=== PATIENT | male | born 1970 | race Caucasian/White ===

== ENCOUNTER 2024-08-24 10:00 | Outpatient (CLI) | payer BC, SELFPAY ==
--- NOTE | ~2024-08-24 | US_ITS ---
EXAMINATION: US thyroid DATE: 08/24/2024 11:11 INDICATION: Thyroid nodule. TECHNIQUE: Multiple ultrasound images of the thyroid were obtained. COMPARISON: None. FINDINGS: The right thyroid lobe measures 2.8 x 2.2 x 4.8 cm. The left thyroid lobe measures 3.7 x 2.2 x 1.6 c m. In the right thyroid lobe, there is a 10 mm solid, hypoechoic, solid nodule with smooth margin wi thout echogenic foci (TI-RADS TR4). In the left thyroid lobe, there is a 4 mm nodule. IMPRESSION: 1. Small thyroid nodules. Thyroid ultrasound is recommended in one year. Reviewed, dictated and finalized at location A. DING PRESSURE WASHER
--- NOTE | ~2024-08-24 | US_ITS ---
EXAMINATION: US arterial ankle brachial ind DATE: 08/24/2024 11:11 INDICATION: Essential hypertension. Prediabetes. TECHNIQUE: Segmental pressures and plethysmographic and Doppler waveforms of the brachial and lower e xtremity arteries were obtained. COMPARISON: None. FINDINGS: Right and left brachial artery pressures of 116 mm Hg and 117 mm Hg, respectively, are concordant (no rmal difference <= 30 mmHg). The right ankle-brachial index (EDISON) is 1.21 (normal >= 0.9-1.0). The right great toe-brachial index (TBI) is 0.67 (normal >= 0.65). Arterial Doppler waveforms demonstrate normal brisk systolic upstroke s at both right posterior tibial and dorsalis pedis arteries. The left EDISON is 1.04. The left TBI is 0.47. Arterial Doppler waveforms demonstrate normal brisk systo lic upstrokes at both left posterior tibial and dorsalis pedis arteries. IMPRESSION: 1. No significant arterial occlusive disease to the right lower limb. 2. 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 Reviewed, dictated and finalized at location B. SURE CONTROL SUPERVISOR IMPRESSION: 1. No significant arterial occlusive disease to the right lower limb. 2. 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
== END 2024-08-24 10:01 | disposition home or self-care (01) ==
PROVIDERS: PCP Family Medicine; Visit Provider Family Medicine
DX: E04.2 Nontoxic multinodular goiter (principal); I77.1 Stricture of artery; I10 Essential (primary) hypertension; R73.03 Prediabetes; R20.2 Paresthesia of skin; M54.9 Dorsalgia, unspecified; G47.30 Sleep apnea, unspecified; E78.5 Hyperlipidemia, unspecified; E66.01 Morbid (severe) obesity due to excess calories; D72.10 Eosinophilia, unspecified; J30.9 Allergic rhinitis, unspecified; I87.2 Venous insufficiency (chronic) (peripheral)
CPT/HCPCS: 76536; 93922

== ENCOUNTER 2025-04-07 09:13 | Outpatient (CLI) | payer BC, SELFPAY ==
--- OUTSIDE RECORDS SUMMARY | 2025-04-07 09:23 | XMS_ITS | Clinical Summary ---
Author Organization [facility] Address [address] [place] [address] Care Team Providers Care Researcher Name Role Phone Neo Alva MD Primary Care Provider [phone] Neo Alva MD Unavailable [phone] Dell Stahl MD Unavailable [phone] Allergies Active Allergy Reactions Criticality Noted Date Comments Codeine Hives Medium 04/16/2012 Measles And Rubella Live Virus Vaccine Unknown 06/10/2019 Niacin Rash Medium 10/16/2016 Penicillins Tramadol Rash Medium 05/18/2019 Medications omeprazole 20 mg tablet,delayed release (DR/EC) 20 mg. 0 0 6 Active Additional Information Patient taking differently:20 mgoral Daily, Reported on 06/10/2019 amLODIPine (NORVASC) 5 mg tablet take 1 tablet by oral route every day 0 0 6 Active meloxicam (MOBIC) 15 mg tablet take 1 tablet by oral route every day 0 0 6 Active aspirin 325 mg tablet take 1 tablet by oral route every day 0 0 6 Active hydroCHLOROthia zide (HYDRODIURIL) 12.5 mg tablet Take 12.5 mg by mouth daily Active DOXYCYCLINE HYCLATE 100 mg capsule 9 Active acetaminophen (TYLENOL) 500 mg tablet Take 1,000 mg by mouth 2 (two) times a day Active metoprolol XL (TOPROL-XL) 100 mg 24 hr tablet 0 Active Active Problems Problem Noted Date Diagnosed Date Morbid obesity 02/11/2020 Acute endocarditis 06/10/2019 Aortic root enlargement 06/10/2019 Nonrheumatic aortic (valve) insufficiency 2018 Sepsis due to methicillin re sistant Staphylococcus aureus (MRSA) 05/23/2019 Obesity 12/01/2018 Hypertension, essential 12/01/2018 Surgical History Surgery Date Site/Laterality Comments TOTAL HIP ARTHROPLASTY 01/05/2019 - 02/03/2019 Right TOTAL HIP ARTHROPLASTY L Medical History Medical History Date Comments Hx Other Medical SVT; A-fib; Com ments: APO 02/03/2016 - Hx Other Medical GERD; Comments: APO 02/03/2016 - Hyperlipidemia Hyperlipidemia; Comments: APO 02/03/2016 - Hx Other Medical Back pain; Comm ents: APO 02/03/2016 - Hx Other Medical Neuropathy- fee t; Comments: APO 02/03/2016 - Hypertension Hypertension Family History Medical History Relation Name Comments Heart failure Father Hypertension Father Heart disease Other 1 Family history of Heart problems; Lung disease Other 2 Family history of Lung problems; Cancer Other 3 Family history of Cancer, unknown; Hypertension Other 4 Family history of Hypertension; Stroke Other 5 Family history of Stroke; Relation Name Status Comments Father Other 1 Other 2 Other 3 Other 4 Other 5 Social History Tobacco Use Types Packs/Day Years Used Date Smoking Tobacco: Never Smokeless Tobacco: Never Alcohol Use Standard Drinks/Week Comments Not Currently 0 (1 standard drink = 0.6 oz pur e alcohol) Sex and Gender Information Value Date Recorded Sex Assigned at Not on file Legal Sex Male 4:03 AM [employer]A DISP[employer]ER Gender Identity Not on file Sexual Orientation Not on file Obstetrics History Last Filed Vital Signs Vital Sign Reading Time Taken Comments Blood Pressure 132/74 02/11/2020 1:09 PM CDT Pulse 68 02/11/2020 1:09 PM CDT Temperature 36.4 C (97.5 F) 11/05/2019 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 difficile 04/30/2019 04/29/2019 Insurance [facility] Care Teams Researcher Relationship Specialty Start Date End Date Neo Alva MD [address] [place] [address] PCP - General 04/30/19 Neo Alva MD [address] [place] [address] [place] [id number] Family Practice 04/30/19 Dell Stahl MD [address] [facility] [place] [address] [employer] Cataloguer Cardiology 05/15/19
--- OUTSIDE RECORDS SUMMARY | 2025-04-07 09:23 | XMS_ITS | Patient Health Record ---
Author Organization [facility] Address [address] [place] [address] Care Team Providers Care Electrician Supervisor Substation Name Role Phone Dr. Niharika Castillo Primary Care Provider [phone] Ginna Alexander Unavailable [phone] Migration, Provider Unavailable Unavailable Allergies Allergen (clinical drug ingredient) Drug/Non Drug Allergy documented on EMR Reaction Allergy Type Onset Date Status Measles, Mumps & Rubella Vac Unknown Drug Allergy 11/01/2021 Active codeine Codeine Unknown Drug Allergy 11/01/2021 Active Penicillin Unknown Drug Allergy 11/01/2021 Activ e tramadol traMADol hives Drug Allergy 11/01/2021 Active Results Component Value Reference Range Flag Notes CBC w/ Diff Reviewed date:05/20/2024 12:00:00 AM Interpretation: Performing Lab: Notes/Report: Baso Absolute 0.1 x10*3/mcL Basophil Auto 0.7 % Eos Absolute 0.6 x10*3/mcL Eosinophil Auto 7.5 % Hct 46.5 % Hgb 15.3 g/dL Lymph Absolute 2.9 x10*3/mcL Lymph Auto 37.9 % MCH 29.0 pg MCHC 33.0 g/dL MCV 87.9 fL [place] Absolute 0.7 x10*3/mcL [place] Auto 9.3 % MPV 9.3 fL Neutro Absolute 3.4 x10*3/mcL Neutro Auto 44.6 % Platelets 194 K/mcL RBC 5.29 x10*6/mcL RDW 13.8 % WBC 7.7 K/mcL Comprehensive Metabolic Pane l Reviewed date:05/20/2024 12:00:00 AM Interpretation: Performing Lab: Notes/Report: Albumin Lvl 4.0 g/dL Albumin/Globulin Ratio 1.5 Alk Phos 52 unit/L ALT 25 unit/L ANION GAP 8.1 mmol/L AST 17 unit/L Bilirubin Total 0.6 mg/dL BUN 21 mg/dL Calcium Lvl 9.5 mg/dL Chloride Lvl 106 mmol/L CO2 27 mmol/L Creatinine Lvl 1.33 mg/dL eGFR CKD-EPI 63 mL/min/1.73 m2 Glucose Lvl 107 mg/dL Potassium Lvl 4.1 mmol/L Protein Total 6.6 g/dL Sodium Lvl 141 mmol/L Hemoglobin A1c {Glycosylated } Reviewed date:05/20/2024 12:00:00 AM Interpretation: Performing Lab: Notes/Report: eAvg Glucose 126 mg/dL Hemoglobin A1c 6.0 % Lipid Panel {Chol, Trig, HDL , LDL} Reviewed date:05/20/2024 12:00:00 AM Interpretation: Performing Lab: Notes/Report: Chol/HDL 4 Cholesterol Total 129 mg/dL Coronary Risk 27 % HDL 35 mg/dL LDL 71 mg/dL NON HDL CHOLESTEROL 94 mg/dL Triglycerides 112 mg/dL PSA Annual Screening Reviewed date:05/20/2024 12:00:00 AM Interpretation: Performing Lab: Notes/Report: PSA Total 0.25 ng/mL T4 Free Reviewed date:05/20/2024 12:00:00 AM Interpretation: Performing Lab: Notes/Report: T4 Free 1.11 ng/dL Thyroid Stimulating Hormone Reviewed date:05/20/2024 12:00:00 AM Interpretation: Performing Lab: Notes/Report: TSH 1.52 mcIU/mL Ultrasound : Artery Doppler Low Ext Left Reviewed date:10/19/2024 10:03:57 AM Interpretation:Negative Performing Lab: Notes/Report: Negative Hemoglobin A1c {Glycosylated } Reviewed date:02/14/2025 08:42:21 PM Interpretation: Performing Lab: Notes/Report: Test Performed by: [place] [address] Speaking Unit Assembler: Jarrett Roland DO Hemoglobin A1c 6.0 <=6.4 % Hemoglobin A1C < 5.7% = Normal 5.7-6.4% = Increased risk for future diabetes >=6.5% = Diabetes eAvg Glucose 126 <=117 mg/dL H eAG Reference Range <117 mg/dL = Normal 117-137 mg/dL = Increased Risk For Future Diabetes >137 mg/dL = Diabetes Vitamin D 25 Hydroxy Reviewed date:02/14/2025 08:42:22 PM Interpretation: Performing Lab: Notes/Report: Test Performed by: [place] [id number] Speaking Unit Assembler: Jarrett Roland DO Vitamin D 25 OH 24 30-100 ng/mL L Vitamin D25 Interpretation: Deficient: <= 20 ng/mL Insufficient: 21-29 ng/mL Sufficient: 30-100 ng/mL Upper Safety Limit: >100 ng/mL T4 Free Reviewed date:02/14/2025 08:42:22 PM Interpretation: Performing Lab: Notes/Report: Test Performed by: [place] [id number] Speaking Unit Assembler: Jarrett Roland DO T4 Free 1.06 0.60-1.70 ng/dL CBC w Auto Diff Reviewed date:02/14/2025 08:42:22 PM Interpretation: Performing Lab: Notes/Report: Test Performed by: [place] [address] Speaking Unit Assembler: Jarrett Roland DO WBC 5.6 4.0-11.7 K/mcL RBC 5.26 4.28-5.56 x10*6/mcL Hgb 15.5 13.0-17.0 g/dL Hct 44.7 38.1-48.9 % MCV 85.0 83.4-98.1 fL MCH 29.4 27.0-34.2 pg MCHC 34.6 31.8-35.3 g/dL RDW 14.5 12.0-16.4 % Platelets 190 149-393 K/mcL MPV 8.4 7.0-11.0 fL Neutro Auto 42.0 45.3-79.0 % L Lymph Auto 36.2 11.8-45.9 % [place] Auto 12.1 4.4-12.0 % H Eosinophil Auto 8.5 0.0-6.3 % H Basophil Auto 1.2 0.2-1.6 % Neutro Absolute 2.3 2.4-8.4 x10*3/mcL L Lymph Absolute 2.0 0.8-3.7 x10*3/mcL [place] Absolute 0.7 0.3-1.1 x10*3/mcL Eos Absolute 0.5 0.0-0.5 x10*3/mcL Baso Absolute 0.1 0.0-0.1 x10*3/mcL Comprehensive Metabolic Pane l Reviewed date:02/14/2025 08:42:22 PM Interpretation: Performing Lab: Notes/Report: Test Performed by: [place] [address] Speaking Unit Assembler: Jarrett Roland DO Glucose Lvl 98 74-109 mg/dL ADA risk stratification for diabetes <100 mg/dL = Normal 100-125 mg/dL = Increased risk for future diabetes >=126 mg/dL = Diabetes, if on more than one testing occasion BUN 23 7-25 mg/dL Creatinine Lvl 1.14 0.70-1.30 mg/dL eGFR CKD-EPI 75 >=90 mL/min/1.73 m2 L The CKD-EPI equation is validated in individuals 18 years of age and older. It is less accurate in patients with extremes of muscle mass, restriction of dietary protein, ingestion of creatine, extra-renal metabolism of creatinine, or treatment with medications that affect renal tubular creatinine secretion. GFR Categories in Chronic Kidney Disease (CKD) GFR GFR (mL/min/1.73 Category: square meters): Interpretation: G1 90 or greater Normal or high* G2 60-89 Mild decrease* G3a 45-59 Mild to moderate decrease G3b 30-44 Moderate to severe decrease G4 15-29 Severe decrease G5 14 or less Kidney failure *In the absence of evidence of kidney damage, neither GFR category G1 nor G2 fulfill the criteria for CKD (Kidney Int Suppl 2013;3:1-150) Calcium Lvl 9.1 8.6-10.3 mg/dL Sodium Lvl 139 136-145 mmol/L Potassium Lvl 4.1 3.5-5.1 mmol/L Chloride Lvl 105 98-107 mmol/L CO2 27 21-31 mmol/L Anion Gap 6.9 <=16.0 mmol/L Alk Phos 47 34-104 unit/L Bilirubin Total 0.6 0.3-1.0 mg/dL Albumin Lvl 3.9 3.5-5.2 g/dL Protein Total 6.6 6.4-8.9 g/dL Albumin/Globulin Ratio 1.4 1.1-2.5 ALT 20 7-52 unit/L AST 15 13-39 unit/L Lipid Panel {Chol, Trig, HDL , LDL} Reviewed date:02/14/2025 08:42:22 PM Interpretation: Performing Lab: Notes/Report: Test Performed by: [address] [id number] Speaking Unit Assembler: Jarrett Roland DO Cholesterol Total 143 <=199 mg/dL Triglycerides 116 0-149 mg/dL Triglyceride Reference Ranges: <150 mg/dL Normal 150 - 199 mg/dL Borderline High 200 - 499 mg/dL High >=500 mg/dL Very High LDL 80 <=100 mg/dL LDL Optimal: <100 Near or above optimal: 100-129 Borderline high: 130-159 High: 160-189 Very high: >=190 Coronary heart disease risk factors should be considered when determining LDL goals. Please refer to ATPIII guidelines for further information. If LDL is not calculated, please call the lab to add on the direct LDL methodology, if desired. HDL 39 23-92 mg/dL Non HDL Cholesterol 103 <=130 mg/dL Chol/HDL 4 0-5 Vitamin B12 Reviewed date:02/14/2025 08:42:22 PM Interpretation: Performing Lab: Notes/Report: Test Performed by: [address] [address] Speaking Unit Assembler: Jarrett Roland DO Vitamin B12 Lvl 382 180-914 pg/mL Vitamin B12 Interpretation: Normal Range: 180-914 pg/mL Indeterminate: 140-180 pg/mL Deficient: <140 pg/mL Reason For Referral Reason Screening colonoscop y-5 year surveillance- Please refer to [place] [facility] Diagnosis 1 Colon cancer screeni mary (Z12.11) Referral Organization [facility] Referring Provider First Name Ginna Referring Provider Last Name Catherine Referring Provider Speciality Nurse Prac titioner Referred Provider Specialty Gastroentero logy General Notes [place] Reina 0 02/15/2025 02:04:45 PM CDT >Referral faxed to Dr. De Leon [phone] Referral Priority Routine Medications Medication SIG (Take, Route, Frequency, Duration) Notes Start Date End Date Status Metoprolol Succinate ER 100 MG Tablet Extended Release 24 Hour 1 tablet Orally twice a day; Duration: 90 days Active Mupirocin 2 % Ointment a small amount Ex ternal two times a day; Duration: 0 10/30/2021 Active Aspirin 325 MG Tablet 1 Oral every day; Duration: 0 10/30/2021 Active Lisinopril-hydroCHLOROthiaz lisa 20-25 MG Tablet 1 tablet Orally Once a day; Duration: 90 days Active Rosuvastatin Calcium 10 MG Tablet 1 tablet Orally Once a day; Duration: 90 days at bedtime Active Immunizations Vaccine Route Administration Date Status Comme nts Zoster Unknown 08/13/2022 Administered ,sourcename : Pharmacy Source VFC Code: : Zoster IM Intramuscular 11/05/2023 Administered ,sourc ename : Pharmacy ,immstatus : Complete Td (adult), adsorbed Unknown 06/08/2003 Administered Source VFC Code: : Moderna Covid-19 Vaccine 1st dose IM Intramuscular 01/18/2021 Administered Source VFC Code: : Moderna Covid-19 Vaccine 1st dose IM Intramuscular 02/15/2021 Administered Source VFC Code: : Influenza, quadrivalent (IIV4), split virus, 6-35 months dosage IM Intramuscular 08/16/2020 Administered Source VFC Code: : Influenza, quadrivalent (IIV4), split virus, 6-35 months dosage IM Intramuscular 08/13/2022 Administered Source VFC Code: : Influenza 6mo+ Unknown 11/07/2024 Administered [facility] DTaP Unknown 12/10/2011 Administered Source VFC Code: : Social History Social History Household: Social Info Question Answer Notes Household Marital status: Additional Details Category Social Info Options Details Miscellaneous: 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 [employer] Problems Problem Type SNOMED Code ICD Code Onset Dates Problem Status W/U Status Risk Notes Problem Morbid obesity (disorder) (320355615) Morbid (severe) obesity due to excess calories (E66.01) 05/20/20 24 Active confirmed Problem Sleep apnea (22554073) Sleep apnea, unspecified (G47.30) 10/30/19 22 Active confirmed Problem Peripheral venous insufficiency (88518827) Venous insufficiency (chronic) (peripheral) (I87.2) 05/20/20 24 Active confirmed Problem Allergic rhinitis (64781658) Allergic rhinitis, unspecified (J30.9) 05/20/20 24 Active confirmed Problem Screening for malignant neoplasm of prostate (437388031) Encounter for screening for malignant neoplasm of prostate (Z12.5) 10/30/19 Active confirmed Problem Prediabetes (876262443) Prediabetes (R73.03) 04/18/20 Active confirmed Problem Body mass index 40+ - severely obese (179560823) Body mass index (BMI) 40.0-44.9, adult (Z68.41) 04/18/20 Active confirmed Problem Eosinophil count above reference range (finding) (183587821) Eosinophilia, unspecified (D72.10) 05/20/20 Active confirmed Problem Adult health examination (081814414) Encounter for general adult medical examination without abnormal findings (Z00.00) 10/30/19 Active confirmed Problem Hyperglycemia (28305014) Hyperglycemia, unspecified (R73.9) 01/05/20 Active confirmed Problem Paresthesia (finding) (35302729) Paresthesia of skin (R20.2) 05/20/20 Active confirmed Problem Backache (136333814) Dorsalgia, unspecified (M54.9) 05/20/20 Active confirmed Problem Essential hypertension (81688575) Essential (primary) hypertension (I10) 10/30/19 Active confirmed Problem Hyperlipidemia (15629950) Hyperlipidemia, unspecified (E78.5) 01/05/20 Active confirmed Problem Obesity (692601666) Obesity, unspecified (E66.9) 10/30/19 Active confirmed Problem Non-toxic single thyroid nodule (824879636) Nontoxic single thyroid nodule (E04.1) 04/18/20 Active confirmed Problem Thyroid nodule (872839265) Thyroid nodule (E04.1) Active confirmed Problem Sciatica (66472777) Lumbago with sciatica, unspecified side (M54.40) Active confirmed Problem Chronic pain (38062473) Other chronic pain (G89.29) Active confirmed Vital Signs Heart Rate 72 /min 02/15/2025 Temperature 96.4 degrees Fahrenheit 02/15/2025 Respiratory Rate 22 /min 02/15/2025 Height-cm 193.04 cm 02/15/2025 Blood pressure diastolic 74 mm Hg 02/15/2025 Oximetry 96 % 02/15/2025 Weight-kg 170.19 kg 02/15/2025 Height 76.00 in 02/15/2025 Blood pressure systolic 116 mm Hg 02/15/2025 Weight 375.2 lbs 02/15/2025 BMI 45.67 kg/m2 02/15/2025 Encounters Encounter Location Date Provider Diagnosis [address] [address] 05/19/2024 Provider Migration Essential (primary) hypertension I10 ; Encounter for screening for malignant neoplasm of prostate Z12.5 ; Hyperlipidemia, unspecified E78.5 ; Hyperglycemia, unspecified R73.9 ; Encounter for general adult medical examination without abnormal findings Z00.00 and Nontoxic single thyroid nodule E04.[address] [address] 05/20/2024 Dr. Niharika Castillo Venous insufficiency (chronic) (peripheral) I87.2 ; Essential (primary) hypertension I10 ; Encounter for removal of sutures Z48.02 ; Local infection of the skin and subcutaneous tissue, unspecified L08.9 ; Encounter for screening for malignant neoplasm of prostate Z12.5 ; Encounter for immunization Z23 ; Eosinophilia, unspecified D72.10 ; Encounter for general adult medical examination without abnormal findings Z00.00 ; Dorsalgia, unspecified M54.9 ; Sleep apnea, unspecified G47.30 ; Morbid (severe) obesity due to excess calories E66.01 ; Dermatitis, unspecified L30.9 ; Neoplasm of uncertain behavior of skin D48.5 ; Allergic rhinitis, unspecified J30.9 ; Paresthesia of skin R20.2 ; Hyperglycemia, unspecified R73.9 ; Hyperlipidemia, unspecified E78.5 ; Nontoxic single thyroid nodule E04.1 ; Prediabetes R73.03 and COVID-[address] [address] 09/01/2024 Provider Migration Nontoxic single thyroid nodule E04.[address] [address] 09/09/2024 Dr. Niharika Castillo [address] [address] 02/15/2025 Ginna Alexander Essential (primary) hypertension I10 ; Wellness examination Z00.00 ; Prediabetes R73.03 ; Hyperlipidemia, unspecified E78.5 ; Obesity, unspecified E66.9 ; Sleep apnea, unspecified G47.30 ; Peripheral polyneuropathy G62.9 ; Vitamin D deficiency E55.9 ; B12 deficiency E53.8 ; Colon cancer screening Z12.11 ; Other chronic pain G89.29 and Lumbago with sciatica, unspecified side M54.[address] [address] 09/05/2024 Provider Migration [address] [address] 09/06/2024 Provider Migration [address] [address] 09/22/2024 Dr. Niharika Castillo [address] [address] 09/22/2024 Dr. Niharika Castillo Thyroid nodule E04.[address] [address] 02/01/2025 Dr. Niharika Castillo [address] [address] 02/12/2025 Ginna Alexander Encounter for [facility] adult medical examination without abnormal findings Z00.00 ; Essential (primary) hypertension I10 ; Thyroid nodule E04.1 ; Hyperlipidemia, unspecified E78.5 and Prediabetes R73.03 Assessments Encounter Date Diagnosis (ICD Code) Assessment Notes Treatment Notes Treatment Clinical Notes Section Notes 09/22/2024 Thyroid nodule (ICD-10 - E04.1) 09/01/2024 Nontoxic single thyroid nodule (ICD-10 - E04.1) 05/20/2024 Neoplasm of uncertain behavior of skin (ICD-10 - D48.5) 05/20/2024 Nontoxic single thyroid nodule (ICD-10 - E04.1) 05/20/2024 Morbid (severe) obesity due to excess calories (ICD-10 - E66.01) 05/20/2024 Hyperlipidemia, unspecified (ICD-10 - E78.5) 05/20/2024 Sleep apnea, unspecified (ICD-10 - G47.30) 05/20/2024 Essential (primary) hypertension (ICD-10 - I10) 05/20/2024 Venous insufficiency (chronic) (peripheral) (ICD-10 - I87.2) 05/20/2024 Allergic rhinitis, unspecified (ICD-10 - J30.9) 05/20/2024 Local infection of the skin and subcutaneous tissue, unspecified (ICD-10 - L08.9) 05/20/2024 Dermatitis, unspecified (ICD-10 - L30.9) 05/20/2024 Dorsalgia, unspecified (ICD-10 - M54.9) 05/20/2024 Paresthesia of skin (ICD-10 - R20.2) 05/20/2024 Hyperglycemia, unspecified (ICD-10 - R73.9) 05/20/2024 Encounter for general adult medical examination without abnormal findings (ICD-10 - Z00.00) 05/20/2024 Encounter for screening for malignant neoplasm of prostate (ICD-10 - Z12.5) 05/20/2024 Encounter for immunization (ICD-10 - Z23) 05/20/2024 Encounter for removal of sutures (ICD-10 - Z48.02) 05/20/2024 Prediabetes (ICD-10 - R73.03) 05/20/2024 COVID-19 (ICD-10 - U07.1) 05/20/2024 Eosinophilia, unspecified (ICD-10 - D72.10) 05/19/2024 Nontoxic single thyroid nodule (ICD-10 - E04.1) 05/19/2024 Hyperlipidemia, unspecified (ICD-10 - E78.5) 05/19/2024 Essential (primary) hypertension (ICD-10 - I10) 05/19/2024 Hyperglycemia, unspecified (ICD-10 - R73.9) 05/19/2024 Encounter for general adult medical examination without abnormal findings (ICD-10 - Z00.00) 05/19/2024 Encounter for screening for malignant neoplasm of prostate (ICD-10 - Z12.5) 02/15/2025 Essential (primary) hypertension (ICD-10 - I10) -BP is controlled w/ metoprolol and lisinopril/HCTZ 02/15/2025 Wellness examination (ICD-10 - Z00.00) Routine wellness exam. Reviewed labs. Due for TDAP but kindly declined. Due for colon cancer screening in May 2025. PSA was last done 05/2024. 02/12/2025 Encounter for general adult medical examination without abnormal findings (ICD-10 - Z00.00) 02/12/2025 Essential (primary) hypertension (ICD-10 - I10) 02/15/2025 Prediabetes (ICD-10 - R73.03) -Last A1C was 6.0 and A1C is again 6. Remains on metformin. 02/15/2025 Hyperlipidemia, unspecified (ICD-10 - E78.5) -Tolerating statin and lipid panel was great. No changes needed with statin 02/12/2025 Thyroid nodule (ICD-10 - E04.1) 02/12/2025 Hyperlipidemia, unspecified (ICD-10 - E78.5) 02/15/2025 Obesity, unspecified (ICD-10 - E66.9) -Has gained weight back. Explored working on diet changes 02/15/2025 Sleep apnea, unspecified (ICD-10 - G47.30) -Wears mouth piece to manage SARAN 02/12/2025 Prediabetes (ICD-10 - R73.03) 02/15/2025 Peripheral polyneuropathy (ICD-10 - G62.9) -Bilateral feet numbness. Patient had aterial studies which were negative. Will get a nerve conduction study with EMG as next step 02/15/2025 Vitamin D deficiency (ICD-10 - E55.9) -Vit D is low at 24, will have him start Vit D 5,000 IU daily 02/15/2025 B12 deficiency (ICD-10 - E53.8) -B12 is 382. Will have him start B12 1,000mcg daily 02/15/2025 Colon cancer screening (ICD-10 - Z12.11) -Will refer for colon cancer screening at [facility]. Will be due in May 2025. 02/15/2025 Other chronic pain (ICD-10 - G89.29) 02/15/2025 Lumbago with sciatica, unspecified side (ICD-10 - M54.40) - Pain in lower back and buttocks after walking no more than 50 ft. -Offered PT referral, but he declined -Weightloss would be very beneficial. -If NVC/EMG shows a central concern will get a MRI fo back. - Recommendation to strengthen core and gluteal muscles through exercises, possibly using online resources. Plan Of Treatment Pending Test Test Name Order Date EMG/NCV ARMS 02/15/2025 Ultrasound : Thyroid Sonography B-Scan 1 11/23/2023 Next Appt Details Provider Name:Dr. Niharika Izquierdo michael, 08/16/2025 11:00:00 AM, [address] [facility], [place], [address], [phone] Insurance Providers Payer Name Payer Address Payer Phone Subscriber Number Group Number Insured Name Patient Relationship to Insured Coverage Start Date Coverage End Date [employer]BS[place] [address] [place] [address] [id number] Katarina Walter Spouse - patient is the spouse of the insured Medical (General) History Medical History History ICD Code Thyroid nodule E04.1 Body mass index (BMI) 40.0-44.9, adult Z 68.41 Eosinophilia, unspecified D72.10 Prediabetes R73.03 Encounter for screening for malignant ne oplasm of prostate Z12.5 Encounter for general adult medical exam ination without abnormal findings Z00.00 Hyperglycemia, unspecified R73.9 Paresthesia of skin R20.2 Dorsalgia, unspecified M54.9 Allergic rhinitis, unspecified J30.9 Venous insufficiency (chronic) (peripher al) I87.2 Essential (primary) hypertension I10 Sleep apnea, unspecified G47.30 Hyperlipidemia, unspecified E78.5 Obesity, unspecified E66.9 Morbid (severe) obesity due to excess ca lories E66.01 Nontoxic single thyroid nodule E04.1 Surgical History Surgery Date(Month/Year) Arthroplasty, acetabular and proximal femoral prosthetic replacement (total hip arthroplasty), with ,notes : BIlateral hip replacement 05/03/2020
--- OUTSIDE RECORDS SUMMARY | 2025-04-07 09:23 | XMS_ITS | Referral Summary ---
Author Organization [facility] Address [address] [place] [address] Care Team Providers Care Electrification Adviser Name Role Phone Neo Alva MD Primary Care Provider Neo Alva MD Unavailable [phone] Dell Stahl MD Unavailable [phone] Allergies Active Allergy Reactions Criticality Noted Date [...] (MRSA) 05/23/2019 Obesity 12/01/2018 Hypertension, essential 12/01/2018 Social History Tobacco Use Types Packs/Day Years Used Date Smoking Tobacco: Never Smokeless Tobacco: Never Alcohol Use Standard Drinks/Week Comments Not Currently 0 (1 standard drink = 0.6 oz pur e alcohol) Sex and Gender Information Value Date Recorded Sex Assigned at Not on file Legal Sex Male 4:03 AM SENIOR 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 Gender Identity Not on file Sexual Orientation Not on file Last Filed Vital Signs Vital Sign Reading Time Taken Comments Blood Pressure 132/74 02/11/2020 1:09 PM CDT Pulse 68 02/11/2020 1:09 PM CDT Temperature 36.4 C (97.5 F) 11/05/2019 1:50 PM SENIOR ADVOCATE Respiratory Rate 20 11/05/2019 1:50 PM SENIOR ADVOCATE Oxygen Saturation 97% 11/05/2019 1:50 PM SENIOR ADVOCATE Inhaled Oxygen Concentration - - Weight 167.8 kg (370 lb) 02/11/2020 1:09 PM CDT Height 193 cm (6' 3.98) 02/11/2020 1:09 PM CDT Body Mass Index 45.06 02/11/2020 1:09 PM CDT Plan of Treatment Not on file Additional Health Concerns Infection Onset Date Last Indicated C. difficile 04/30/2019 04/29/2019 Insurance [facility] [employer] Care Teams Electrification Adviser Relationship Specialty Start Date End Date Neo Alva MD [address] [place] [address] PCP - General 04/30/19 Neo Alva MD [address] [place] [address] Family Practice 04/30/19 Dell Stahl MD [address] [place] [address] Strawhat Blocking Operator Cardiology 05/15/19
--- NOTE | 2025-04-07 11:00 | NEURO_ITS ---
Impression: # Borderline diabetic complains of increasing numbness of left lower extremity ? # Axonal motor/sensory Neuropathy ? # Neurogenic changes on Needle/EMG exam more so distally Nerve Conduction Studies ?Stim Site NR Peak (ms) P-T Amp (?V) Site1 Site2 Delta-P (ms) Dist (cm) Lon (m/s) Left Sup Fibular Anti Sensory (Ant Lat Mall)??? NO RESPONSE 14 cm NR 14 cm Ant Lat Mall 16.0 Right Sup Fibular Anti Sensory (Ant Lat Mall)??? NO RESPONSE 14 cm NR 14 cm Ant Lat Mall 16.0 Left Sural Anti Sensory (Lat Mall) Calf ? 4.4 19.2 Calf Lat Mall 4.4 16.0 36 Right Sural Anti Sensory (Lat Mall)??? DISPERSED RESPONSE Calf NR Calf Lat Mall 16.0 ?Stim Site NR Onset (ms) O-P Amp (mV) Site1 Site2 Delta-0 (ms) Dist (cm) Lon (m/s) Left Peroneal Motor (Vastus Med) Ankle ? 3.3 1.5 Popit Ankle 10.5 44.0 42 Popit ? 13.8 0.5 Right Peroneal Motor (Vastus Med) Ankle ? 3.8 1.2 Popit Ankle 11.2 44.0 39 Popit ? 15.0 0.9 Left Tibial Motor (Abd Regalado Brev) Ankle ? 6.1 1.7 Knee Ankle 11.2 46.0 41 Knee ? 17.3 0.5 Right Tibial Motor (Abd Regalado Brev) Ankle ? 5.9 0.9 Knee Ankle 13.6 46.0 34 Knee ? 19.5 1.9 Electromyography ?Side Muscle Nerve Root Ins Act Fibs Amp Dur Recrt Comment Right AntTibialis Dp Br Fibular L4-5 Nml Nml Decr >12ms +1 Right Gastroc Tibial S1-2 Nml Nml Decr >12ms +1 Right Fibularis Long Sup Br Fibular L5-S1 Nml Nml Decr >12ms +1 Right Flex Dig Long Tibial L5-S2 Nml Nml Nml Nml Nml Right Ext Dig Brev Dp Br Fibular L5, S1 Nml Nml Decr >12ms +2 Right QuadratusFem QuadFemoris L4-5, S1 Nml Nml Decr >12ms +1 Left AntTibialis Dp Br Fibular L4-5 Nml Nml Decr >12ms +1 Left Gastroc Tibial S1-2 Nml Nml Decr >12ms +1 Left Fibularis Long Sup Br Fibular L5-S1 Nml Nml Decr >12ms +1 Left Flex Dig Long Tibial L5-S2 Nml Nml Nml Nml Nml Left Ext Dig Brev Dp Br Fibular L5, S1 Nml Nml Decr >12ms +2 Left QuadratusFem QuadFemoris L4-5, S1 Nml Nml Decr >12ms +1
== END 2025-04-07 09:14 | disposition home or self-care (01) ==
PROVIDERS: PCP Family Medicine; Visit Provider Nurse Practitioner Family
DX: G62.9 Polyneuropathy, unspecified (principal)
CPT/HCPCS: 95886; 95910